=== PATIENT | male | born 1960 | race Caucasian/White ===

== ENCOUNTER 2016-10-23 15:17 | Emergency (ER) | payer OTHER ==
[~2016-10-23] VITALS: Ht 172.7 cm; Wt 88.5 kg
[2016-10-23 15:48] VITALS: BP 121/71
== END 2016-10-23 16:46 | disposition home or self-care (01) ==
LOC: ER 15:19
DX: S80.11XA Contusion of right lower leg, initial encounter (principal); S90.512A Abrasion, left ankle, initial encounter; S90.511A Abrasion, right ankle, initial encounter; S90.812A Abrasion, left foot, initial encounter; S90.811A Abrasion, right foot, initial encounter; F29 Unspecified psychosis not due to a substance or known physiological condition; L85.3 Xerosis cutis; X58.XXXA Exposure to other specified factors, initial encounter; Y93.01 Activity, walking, marching and hiking; Y92.89 Other specified places as the place of occurrence of the external cause; Y99.9 Unspecified external cause status
CPT/HCPCS: A4606; Z7610

== ENCOUNTER 2017-02-04 18:43 | Emergency (ER) | payer OTHER ==
[~2017-02-04] VITALS: Ht 172.7 cm; Wt 88.5 kg
[2017-02-04 19:09] VITALS: BP 116/68
[2017-02-04] MEDS ORDERED: ACETAMINOPHEN ES 500 MG TABLET ONE (19:49)
[2017-02-04] MEDS: ACETAMINOPHEN 325 MG TABLET PO ONE (19:56)
== END 2017-02-04 21:13 | disposition home or self-care (01) ==
LOC: ER 18:46
DX: M25.562 Pain in left knee (principal)
CPT/HCPCS: 73560-TC; A4606; Z7610

== ENCOUNTER 2017-04-12 14:19 | Emergency (ER) | payer MEDICAID, OTHER ==
[~2017-04-12] VITALS: Ht 172.7 cm; Wt 86.2 kg
[2017-04-12 14:26] VITALS: BP 132/100
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
--- NOTE | 2017-04-12 14:59 | NUR ---
PT ELOPED FROM FACILITY. EMT'S WENT TO BEDSIDE TWICE TO PERFORM EKG WITH PT NOT IN ROOM. PA NOTIFIED.
--- NOTE | 2017-04-12 15:01 | NUR ---
DISREGARD RECORD OF EKG. CAN NOT DEPART PT IN COMPUTER IF EKG ORDER IS PENDING. NO EKG WAS PERFORMED.
== END 2017-04-12 15:09 | disposition home or self-care (01) ==
LOC: ER 14:23
DX: R10.9 Unspecified abdominal pain (principal); F15.10 Other stimulant abuse, uncomplicated; R00.0 Tachycardia, unspecified; F17.200 Nicotine dependence, unspecified, uncomplicated
CPT/HCPCS: A4606; Z7610

== ENCOUNTER → 2017-04-12 | Emergency (ER) | payer MEDICAID | LOC: ER 19:56 | DX: Z53.21 Procedure and treatment not carried out due to patient leaving prior to being seen by health care provider (principal) ==

== ENCOUNTER 2018-07-12 20:42 | Emergency (ER) | payer MEDICAID, OTHER ==
--- NOTE | 2018-07-12 21:10 | NUR ---
CALLED FOR PATIENT. NO RESPONSE
--- NOTE | 2018-07-12 21:12 | NUR ---
PATIENT HAS LEFT
== END 2018-07-12 21:13 | disposition left against medical advice (07) ==
LOC: ER 20:42
DX: Z53.21 Procedure and treatment not carried out due to patient leaving prior to being seen by health care provider (principal)

== ENCOUNTER 2018-07-12 22:21 | Emergency (ER) | payer OTHER ==
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
== END 2018-07-12 22:59 | disposition left against medical advice (07) ==
LOC: ER 22:24
DX: Z53.21 Procedure and treatment not carried out due to patient leaving prior to being seen by health care provider (principal)